=== PATIENT | male | born 1970 | race Two or more races ===

== ENCOUNTER → 2021-09-19 | Outpatient (CLI) | payer OTHER ==
--- NOTE | 2021-09-19 18:47 | CONS ---
CONSULTATION DATE OF SERVICE: 09/19/2021 51-year-old gentleman has been evaluated in [facility] for obstructive sleep apnea- hypopnea syndrome. HISTORY OF PRESENT ILLNESS SLEEP-WAKE EVALUATION: According to patient, he had a sleep study 4 years ago which showed that he has obstructive sleep apnea, but at that time because of insurance issue, the patient was not able to get treatment. SLEEP SCHEDULE: Presently, his sleep schedule from 9 to 10 pm to 4:30/5 am. FALLING ASLEEP: He does have problems with falling asleep, has TV set in bedroom. DURING SLEEP: Usually sleeps on the side position. He has loud snoring, witnessed episodes of stopped breathing during sleep, awakenings with choking, dry mouth, gasping for air, restless legs, sweating up to 5 times at night with 4 episodes of nocturia. Questionable positive history of hypnagogic hallucinations. No sleep paralysis or cataplexy. DURING THE DAY/SLEEP WAKE EVALUATION: In the morning, the patient wakes up tired, falling asleep during the day, has problems with memory, concentration, irritability, depression, anxiety, claustrophobia, sexual dysfunction. [place] Sleepiness Scale is significantly increased to 13. The patient may take naps up to 3 times during the day. PAST MEDICAL HISTORY: Positive for hypertension, hyperlipidemia, asthma, headaches, acid reflux, diabetes mellitus, erythrocytosis. PAST SURGICAL HISTORY: None. SOCIAL HISTORY: Negative for smoking, alcohol consumption rarely. FAMILY HISTORY: Hypertension, heart problems, asthma, snoring, acid reflux, diabetes, mental illness. MEDICATIONS: Metoprolol, Effexor, baby aspirin, amlodipine, Trulicity, Lipitor, Xarelto, gabapentin, [place]. REVIEW OF SYSTEMS: Multiple awakenings from sleep, snoring, sleepiness during the day. PHYSICAL EXAMINATION: GENERAL: gentleman without distress. BP 146/90, HR 97, RR 18. Height 6 feet 2 inches, weight 336.4, temperature 97.6, oxygen saturation at room air 93%. Oropharynx: Small oropharyngeal air space, extremely wide pillars. NECK is extremely wide 20 inches and a half. NECK: Supple, no JVD. Thyroid is not palpable. LUNGS: Clear to percussion and to auscultation. Good air exchange. No wheezing or rhonchi. HEART: S1, S2 regular. No murmurs, gallops, or rubs. ABDOMEN: Obese. Soft and nontender. Bowel sounds are present. No organomegaly appreciated. EXTREMITIES: No clubbing or cyanosis. INFORMATION SECURITY CONSULTANT: Awake, alert, and oriented X3. Cranial nerves 2 to 7 intact. There is no fasciculation or atrophy. noted. No focal deficits observed. IMPRESSION: 1. Loud snoring, witnessed episodes of stopped breathing during sleep, extremely low position of soft palate, Mallampati 4, extremely wide neck, 20 into 0.5 inches in circumference, sleepiness. [place] Sleepiness Scale is 13. Positive history of obstructive sleep apnea in the past obstructive sleep apnea-hypopnea syndrome. 2. Obesity BMI 43.1. 3. Hypertension. 4. Hyperlipidemia. 5. Asthma. 6. Headaches. 7. Acid reflux. 8. Diabetes mellitus. 9. History of restless leg symptoms. 10.Erythrocytosis possibly secondary to obstructive sleep apnea. PLAN: 1. Polysomnography for evaluation of patient's breathing during sleep. 2. CPAP/BiPAP titration if sleep study confirms obstructive sleep apnea-hypopnea syndrome. 3. Preferable position during sleep on the side. 4. No driving if patient feels any sleepiness. 5. I will see patient for follow up visit to explain results of testing and following plan. Thank you very much for referring this patient for consultation. Sincerely, Nicolas Michel MD, PhD, FAASM Diplomat of [employer] [employer] Sleep Medicine Board of [place] [employer] [place] [employer] [facility] [place] MMODL / IJN: [id number] /
== END ==
LOC: SLEEP 15:04
PROVIDERS: ATTEND Internal Medicine
DX: G47.33 Obstructive sleep apnea (adult) (pediatric) (principal); E66.9 Obesity, unspecified; I10 Essential (primary) hypertension; E78.5 Hyperlipidemia, unspecified; J45.909 Unspecified asthma, uncomplicated; K21.9 Gastro-esophageal reflux disease without esophagitis; E11.9 Type 2 diabetes mellitus without complications; D75.1 Secondary polycythemia; Z68.41 Body mass index [BMI] 40.0-44.9, adult; Z79.899 Other long term (current) drug therapy; Z79.84 Long term (current) use of oral hypoglycemic drugs
CPT/HCPCS: 99202

== ENCOUNTER → 2022-03-28 | Outpatient (CLI) | payer OTHER ==
--- NOTE | 2022-03-28 15:11 | P.PN ---
Subjective DATE: 03/28/2022 FOLLOW UP VISIT. Patient with obstructive sleep apnea hypopnea syndrome return to sleep center for follow-up visit. Recently patient had sleep study which documented obstructive sleep apnea hypopnea syndrome. Patient was initiated on PAP therapy and today is first visit after treatment was started. I explained to the patient results of sleep studies in details Patient was able to use PAP equipment every night for the whole night. The patient does not have significant problems with the mask, PAP pressure and humidification. [place] sleepiness scale is 7. I checked information from PAP unit. BiPAP unit pressure maximal inspiratory pressure 20, minimal expiratory pressure 12, pressure support 4 cm H2O. Usage is 100 % for more then 4 hours, average 4 hours 39 minutes hours per night. Leak is 9.8 l/m, which is in acceptable range. Apnea Hypopnea Index is 3.4, which is normal. MEDICATIONS:1. Metoprolol 2. Effexor 3. Amlodipine 4. Lipitor 5. Gabapentin 6. Aspirin 81 mg 7. Xarelto 8. [place] During physical exam: GENERAL: A pleasant patient without any distress. VITAL SIGNS: BP 142/70, HR 92, RR 16 , weight 335, temperature 97, oxygen saturation at room air 97% . HEENT: PERRLA, EOMI.low position of soft palate, . NECK: Supple. No JVD. LUNGS: Clear to percussion and to auscultation. Good air exchange. No wheezing or rhonchi. HEART: S1, S2 regular. ABDOMEN: Soft and nontender. Obese EXTREMITIES: No clubbing or cyanosis. POLE TRUCK DRIVER: Awake, alert, and oriented x3. No focal deficit. Impressions: 1. Extremely severe obstructive sleep apnea hypopnea syndrome apnea-hypopnea index 86.6. Extremely severe oxygen desaturation Patient demonstrated great compliance with treatment, benefiting from treatment. Normal respiration on BiPAP. 2. Obesity. 3. Hypertension. 4. Hyperlipidemia. 5. Asthma. 6. Headaches. 7. History of any erythrocytosis possibly secondary to obstructive sleep apnea hypopnea syndrome. 8. Diabetes mellitus. 9. Headaches 10. History of restless leg symptoms. Plan: 1. Continue using PAP equipment every night for the whole night. 2. To change air filter at least 1-2 times per month. 3. PAP unit should stay lower then position of the head. 4. Advised patient to remove all remaining water from humidifier canister daily and make it dry after each usage. Refill canister with fresh distilled water before each usage. 5. Sleep hygiene with regular time in bed for at least 8 hours. 6. Precautions related to driving. No driving if feel any sleepiness. 7. I will maintain prescription for PAP supplies including mask, tube, filters. 8. Follow up visit in 6 months or earlier if patient has any problems. 9. Aggressive losing weight program. Thank you very much for allowing me to participate in the management of your patient. Nicolas Michel MD, PhD, FAASM. Diplomat of [place] [employer], Sleep Medicine Board by [place] [employer] [facility] [employer] [place]
== END ==
LOC: SLEEP 14:33
PROVIDERS: ATTEND Internal Medicine
DX: G47.33 Obstructive sleep apnea (adult) (pediatric) (principal); G47.36 Sleep related hypoventilation in conditions classified elsewhere; Z99.89 Dependence on other enabling machines and devices; E66.9 Obesity, unspecified; I10 Essential (primary) hypertension; E78.5 Hyperlipidemia, unspecified; J45.909 Unspecified asthma, uncomplicated; E11.9 Type 2 diabetes mellitus without complications; G25.81 Restless legs syndrome; Z86.2 Personal history of diseases of the blood and blood-forming organs and certain disorders involving the immune mechanism

== ENCOUNTER → 2022-10-03 | Outpatient (CLI) | payer OTHER ==
--- NOTE | 2022-10-03 16:22 | P.PN ---
Subjective DATE: 10/03/2022 FOLLOW UP VISIT. Patient with obstructive sleep apnea hypopnea syndrome return to sleep center for follow-up visit. Information from previous visit have been reviewed. Patient is using PAP equipment every night for the whole night, getting PAP supplies in time. The patient does not have significant problems with the mask, PAP unit and humidification. [place] sleepiness scale is increased to 12. I checked information from PAP unit. PAP unit pressure maximal inspiratory pressure 20, minimal expiratory pressure 12, pressure-support 4, average pressure 16.2 over 12.2 cm H2O. Usage is 80% and 70 % for more then 4 hours, average 4.2 hours per night. Leak slightly increased to 36 l/m. Apnea Hypopnea Index is 1.6, which is normal. MEDICATIONS:1. Metformin 2. Metoprolol 3. Effexor 4. Amlodipine 5. Lipitor 6. Gabapentin 7. Xarelto 8. [place] 9. Trulicity During physical exam: GENERAL: A pleasant patient without any distress. VITAL SIGNS: BP 126/86, HR 105, RR 16 , weight 328, temperature 98.3, oxygen saturation at room air 95 % . HEENT: PERRLA, EOMI.low position of soft palate, Mallapati 3. NECK: Supple. No JVD. LUNGS: Clear to percussion and to auscultation. Good air exchange. No wheezing or rhonchi. HEART: S1, S2 regular. ABDOMEN: Soft and nontender.[ Obese EXTREMITIES: No clubbing or cyanosis. TRANSIT PLANNER: Awake, alert, and oriented x3. No focal deficit. Impressions: 1. Obstructive sleep apnea-hypopnea syndrome. Patient demonstrated good compliance with treatment, benefiting from treatment. 2. [Obesity, body mass index 43.2 3. [Hypertension 4. [History of asthma 5. [Hyperlipidemia 6. [History of erythrocytosis 7. [Diabetes mellitus Plan: 1. Continue using PAP equipment every night for the whole night. 2. To change air filter at least 1-2 times per month. 3. PAP unit should stay lower then position of the head. 4. Advised patient to remove all remaining water from humidifier canister daily and make it dry after each usage. Refill canister with fresh distilled water before each usage. 5. Sleep hygiene with regular time in bed for at least 8 hours. 6. Precautions related to driving. No driving if feel any sleepiness. 7. I will maintain prescription for PAP supplies including mask, tube, filters. 8. Watching and aggressive losing weight. 9. Follow up visit in 6 months or earlier if patient has any problems. Thank you very much for allowing me to participate in the management of your patient. Nicolas Michel MD, PhD, FAASM. Diplomat of [place] [employer], Sleep Medicine Board by [place] [employer] [facility] [place]
== END ==
LOC: SLEEP 15:56
PROVIDERS: ATTEND Internal Medicine
DX: G47.33 Obstructive sleep apnea (adult) (pediatric) (principal); Z99.89 Dependence on other enabling machines and devices; E66.9 Obesity, unspecified; Z68.41 Body mass index [BMI] 40.0-44.9, adult; I10 Essential (primary) hypertension; E78.5 Hyperlipidemia, unspecified; E11.9 Type 2 diabetes mellitus without complications; Z87.09 Personal history of other diseases of the respiratory system; Z86.2 Personal history of diseases of the blood and blood-forming organs and certain disorders involving the immune mechanism; Z79.84 Long term (current) use of oral hypoglycemic drugs; Z79.899 Other long term (current) drug therapy
CPT/HCPCS: 99212